=== PATIENT | male | born 1985 | race Caucasian/White ===

== ENCOUNTER 2021-05-08 16:30 | Emergency (ER) | payer OTHER, SELFPAY ==
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
[2021-05-08 16:53] VITALS: BP 127/74; PULSE 76; RESP 12; TEMP 36.8; O2SAT 98
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
== END 2021-05-08 17:31 | disposition home or self-care (01) ==
PROVIDERS: Emergency Provider Emergency Medicine; PCP Family Medicine
DX: S29.012A Strain of muscle and tendon of back wall of thorax, initial encounter (principal); V49.40XA Driver injured in collision with unspecified motor vehicles in traffic accident, initial encounter
CPT/HCPCS: 99213; G0463